=== PATIENT | male | born 1965 | race Caucasian/White ===

== ENCOUNTER 2016-12-28 20:40 | Inpatient (IN) | payer BC ==
[~2016-12-28] VITALS: Ht 180.3 cm; Wt 54.4 kg
[2016-12-28] MEDS ORDERED: NKM (20:44)
[2016-12-28 20:50] VITALS: BP 161/108
--- NOTE | 2016-12-28 21:13 | Emergency Room Report ---
History of Present Illness General Chief Complaint: Nausea Source: Patient Present Illness HPI 51YOM BIBEMS from hot with hypoglycemia [place] weak, nauseated "its happened to me before." Was given dextrose by EMS States history of throat cancer, "gtube fell out years ago", "only drink protein shakes" because hard for me to swallow States cancer free after radiation/chemo years ago Denies history of DM Doesnt take any other meds Also admits to drinking lots of vodka recently Allergies: Coded Allergies: No Known Allergies (Unverified , 12/28/16) Patient History Past Medical History: none, other - laryngeal cancer Pertinent Family History: none Social History: Reports: alcohol use Immunizations: UTD Reviewed Nursing Documentation: PMH: Agreed, PSxH: Agreed Nursing Documentation-PMH Hx Cancer: Yes - throat cancer Review of Systems All Other Systems: negative except mentioned in HPI Physical Exam Vital Signs Date Time Temp Pulse Resp B/P (MAP) Pulse Ox O2 Delivery O2 Flow Rate FiO2 12/28/16 20:41 97.7 99 18 161/108 100 Room Air Sp02 EP Interpretation: reviewed, normal General Appearance: normal inspection, well appearing, no apparent distress, alert, GCS 15, non-toxic, cachetic, thin Head: normocephalic, atraumatic Eyes: bilateral eye PERRL, bilateral eye EOMI ENT: normal ENT inspection, hearing grossly normal, normal voice Neck: normal inspection, full range of motion, supple, no bony tend Respiratory: normal inspection, lungs clear, normal breath sounds, no respiratory distress, no retraction, no wheezing Cardiovascular #1: regular rate, rhythm, no edema Gastrointestinal: normal inspection, normal bowel sounds, non tender, soft, no guarding, no hernia Genitourinary: no CVA tenderness Musculoskeletal: normal inspection, back normal, normal range of motion, Srinivasa' s Sign negative Neurologic: normal inspection, alert, responsive, speech normal Psychiatric: normal inspection, judgement/insight normal, mood/affect normal Skin: normal inspection, normal color, no rash Medical Decision Making Diagnostic Impression: Primary Impression: Weakness Additional Impressions: Malnourished Qualified Codes: E46 - Unspecified protein-calorie malnutrition Hypoglycemia ER Course Patient with weakness, malnourished and hypoglycemia Not on DM meds Cachextic, weak on exam Labs: No acute abnormalities Started on D5NS in ED Med/surg admit Panel Admit to Dr Pham at 1008pm Rhythm Strip Diag. Results EP Interpretation: yes Rate: 94 Rhythm: NSR, no PVC's, no ectopy Last Vital Signs Date Time Temp Pulse Resp B/P (MAP) Pulse Ox O2 Delivery O2 Flow Rate FiO2 12/28/16 20:41 97.7 99 18 161/108 100 Room Air Status: improved Disposition: ADMITTED INPATIENT Condition: Serious ANETTE TAMEZ M.D. Dec 28, 2016 21:13
[2016-12-28 21:27] LABS: MEAN CORPUSCULAR HEMOGLOBIN 32.6 PG (27.0-31.0); MEAN CORPUSCULAR HGB CONC 31.4 G/DL (32.0-36.0); MEAN CORPUSCULAR VOLUME 104 FL (80-99); MEAN PLATELET VOLUME 5.1 FL (6.5-10.1); PLATELET COUNT 219 K/UL (150-450); RED BLOOD COUNT 4.16 M/UL (4.70-6.10); RED CELL DISTRIBUTION WIDTH 13.1 % (11.6-14.8); WHITE BLOOD COUNT 6.1 K/UL (4.8-10.8)
[2016-12-28 21:28] LABS: BASOPHILS % (AUTO) 0.3 % (0.0-2.0); EOSINOPHILS % (AUTO) 0.1 % (0.0-3.0); LYMPHOCYTES % (AUTO) 3.1 % (20.0-45.0); MONOCYTES % (AUTO) 1.7 % (1.0-10.0); NEUTROPHILS % (AUTO) 94.8 % (45.0-75.0)
[2016-12-28 22:02] LABS: ALANINE AMINOTRANSFERASE 29 U/L (12-78); ALBUMIN/GLOBULIN RATIO 1.1 (1.0-2.7); ANION GAP 25 mmol/L (5-15); ASPARTATE AMINO TRANSFERASE 55 U/L (15-37); CALCIUM 8.7 MG/DL (8.5-10.1); CARBON DIOXIDE 17 MMOL/L (21-32); CHLORIDE 93 MMOL/L (98-107); CKMB 6.6 NG/ML (0.0-3.6); CREATININE 1.2 MG/DL (0.55-1.30); GLOMERULAR FILTRATION RATE > 60 mL/min (>60); POTASSIUM 4.2 MMOL/L (3.5-5.1); SODIUM 135 MMOL/L (136-145); TOTAL PROTEIN 7.5 G/DL (6.4-8.2)
[2016-12-28] MEDS ORDERED: D5NS 1,000 ML IV SCH (22:15)
[2016-12-28 22:25] VITALS: BP 132/81
[2016-12-28] MEDS ORDERED: Mylanta II UD 30ml ORAL PRN (23:15)
[2016-12-28] MEDS ORDERED: Miralax 17gm pkt ORAL PRN (23:15)
[2016-12-28] MEDS ORDERED: LORazepam Inj 2mg/ml 1ml IV PRN (23:15)
[2016-12-29] VITALS: BP 121/77
[2016-12-29 04:00] VITALS: BP 116/72
[2016-12-29 08:52] LABS: BASOPHILS % (AUTO) 0.6 % (0.0-2.0); EOSINOPHILS % (AUTO) 0.7 % (0.0-3.0); LYMPHOCYTES % (AUTO) 8.9 % (20.0-45.0); MEAN CORPUSCULAR HGB CONC 35.5 G/DL (32.0-36.0); MEAN CORPUSCULAR VOLUME 99 FL (80-99); MEAN PLATELET VOLUME 5.6 FL (6.5-10.1); MONOCYTES % (AUTO) 9.2 % (1.0-10.0); NEUTROPHILS % (AUTO) 80.6 % (45.0-75.0); PLATELET COUNT 196 K/UL (150-450); RED BLOOD COUNT 3.37 M/UL (4.70-6.10); RED CELL DISTRIBUTION WIDTH 12.4 % (11.6-14.8); WHITE BLOOD COUNT 6.9 K/UL (4.8-10.8)
[2016-12-29 09:01] LABS: ALANINE AMINOTRANSFERASE 23 U/L (12-78); ALBUMIN/GLOBULIN RATIO 1.1 (1.0-2.7); ANION GAP 12 mmol/L (5-15); ASPARTATE AMINO TRANSFERASE 36 U/L (15-37); CALCIUM 7.7 MG/DL (8.5-10.1); CARBON DIOXIDE 24 MMOL/L (21-32); CHLORIDE 99 MMOL/L (98-107); CHOLESTEROL 165 MG/DL (< 200); CHOLESTEROL/HDL RATIO 2.4 (3.3-4.4); CREATININE 0.9 MG/DL (0.55-1.30); GLOMERULAR FILTRATION RATE > 60 mL/min (>60); POTASSIUM 4.1 MMOL/L (3.5-5.1); SODIUM 134 MMOL/L (136-145); THYROID STIMULATING HORMONE 7.834 uiU/mL (0.360-3.740); TOTAL PROTEIN 5.9 G/DL (6.4-8.2)
[2016-12-29 09:03] LABS: BILIRUBIN,DIRECT 0.2 MG/DL (0.0-0.3)
[2016-12-29] MEDS: Heparin 5000 units/ml inj SUBQ SCH ×2 (09:11→20:22)
--- NOTE | 2016-12-29 10:22 | Diagnostic Imaging Report ---
Indication: PAIN Technique: One view of the chest Comparison: none Findings: Lungs and pleural spaces are clear. Heart size is normal. Impression: No acute process
--- NOTE | 2016-12-29 11:34 | History and Physical ---
History of Present Illness General Date patient seen: Dec 28, 2016 Reason for Hospitalization: Nausea Present Illness HPI 51 year old male with hx of throat cancer, s/p radiation and chemo and upper esophagus strictures presented l with hypoglycemia, weakness, nauseated. He "only drink protein shakes" because hard for me to swallow. He is admitted for dehydration and hypoglycemia. Allergies: Coded Allergies: No Known Allergies (Unverified , 12/28/16) Medication History Scheduled No Known Medications* (NKM - No Known Medications*), 0 ., (Reported) Patient History Healthcare decision maker Resuscitation status Advanced Directive on File Past Medical/Surgical History Past Medical/Surgical History: (1) Throat cancer Review of Systems All Other Systems: negative except mentioned in HPI Physical Exam General Appearance: cachetic Lines, tubes and drains: peripheral HEENT: normocephalic, atraumatic Neck: non-tender, normal alignment Respiratory/Chest: chest wall non-tender, lungs clear Cardiovascular/Chest: normal peripheral pulses, normal rate Abdomen: normal bowel sounds, non tender Genitourinary/Rectal: normal genital exam Last 24 Hour Vital Signs Date Time Temp Pulse Resp B/P (MAP) Pulse Ox O2 Delivery O2 Flow Rate FiO2 12/29/16 04:00 97.5 87 20 116/72 97 Room Air 12/29/16 00:00 97.7 103 19 121/77 100 Room Air 12/28/16 22:35 97.7 84 18 132/81 99 Room Air 12/28/16 22:25 84 18 132/81 99 Room Air 12/28/16 20:50 97.7 89 18 161/108 100 Room Air 12/28/16 20:41 97.7 99 18 161/108 100 Room Air Laboratory Tests Test 12/28/16 21:05 12/28/16 22:05 12/29/16 06:37 White Blood Count 6.1 K/UL (4.8-10.8) 6.9 K/UL (4.8-10.8) Red Blood Count 4.16 M/UL (4.70-6.10) L 3.37 M/UL (4.70-6.10) L Hemoglobin 13.6 G/DL (14.2-18.0) L 11.8 G/DL (14.2-18.0) L Hematocrit 43.1 % (42.0-52.0) 33.3 % (42.0-52.0) L Mean Corpuscular Volume 104 FL (80-99) H 99 FL (80-99) Mean Corpuscular Hemoglobin 32.6 PG (27.0-31.0) H 35.0 PG (27.0-31.0) H Mean Corpuscular Hemoglobin Concent 31.4 G/DL (32.0-36.0) L 35.5 G/DL (32.0-36.0) Red Cell Distribution Width 13.1 % (11.6-14.8) 12.4 % (11.6-14.8) Platelet Count 219 K/UL (150-450) 196 K/UL (150-450) Mean Platelet Volume 5.1 FL (6.5-10.1) L 5.6 FL (6.5-10.1) L Neutrophils (%) (Auto) 94.8 % (45.0-75.0) H 80.6 % (45.0-75.0) H Lymphocytes (%) (Auto) 3.1 % (20.0-45.0) L 8.9 % (20.0-45.0) L Monocytes (%) (Auto) 1.7 % (1.0-10.0) 9.2 % (1.0-10.0) Eosinophils (%) (Auto) 0.1 % (0.0-3.0) 0.7 % (0.0-3.0) Basophils (%) (Auto) 0.3 % (0.0-2.0) 0.6 % (0.0-2.0) Sodium Level 135 MMOL/L (136-145) L 134 MMOL/L (136-145) L Potassium Level 4.2 MMOL/L (3.5-5.1) 4.1 MMOL/L (3.5-5.1) Chloride Level 93 MMOL/L (98-107) L 99 MMOL/L (98-107) Carbon Dioxide Level 17 MMOL/L (21-32) L 24 MMOL/L (21-32) Anion Gap 25 mmol/L (5-15) H 12 mmol/L (5-15) Blood Urea Nitrogen 20 mg/dL (7-18) H 15 mg/dL (7-18) Creatinine 1.2 MG/DL (0.55-1.30) 0.9 MG/DL (0.55-1.30) Estimat Glomerular Filtration Rate > 60 mL/min (>60) > 60 mL/min (>60) Glucose Level 107 MG/DL (74-106) H 78 MG/DL (74-106) Calcium Level 8.7 MG/DL (8.5-10.1) 7.7 MG/DL (8.5-10.1) L Total Bilirubin 0.7 MG/DL (0.2-1.0) 1.1 MG/DL (0.2-1.0) H Aspartate Amino Transf (AST/SGOT) 55 U/L (15-37) H 36 U/L (15-37) Alanine Aminotransferase (ALT/SGPT) 29 U/L (12-78) 23 U/L (12-78) Alkaline Phosphatase 56 U/L (46-116) 42 U/L (46-116) L Total Creatine Kinase 253 U/L (26-308) Creatine Kinase MB 6.6 NG/ML (0.0-3.6) H Creatine Kinase MB Relative Index 2.6 Troponin I 0.002 ng/mL (0.000-0.056) Total Protein 7.5 G/DL (6.4-8.2) 5.9 G/DL (6.4-8.2) L Albumin 4.0 G/DL (3.4-5.0) 3.1 G/DL (3.4-5.0) L Globulin 3.5 g/dL 2.8 g/dL Albumin/Globulin Ratio 1.1 (1.0-2.7) 1.1 (1.0-2.7) Urine Opiates Screen Negative (NEGATIVE) Urine Barbiturates Screen Negative (NEGATIVE) Phencyclidine (PCP) Screen Negative (NEGATIVE) Urine Amphetamines Screen Negative (NEGATIVE) Urine Benzodiazepines Screen Negative (NEGATIVE) Urine Cocaine Screen Negative (NEGATIVE) Urine Marijuana (THC) Screen Positive (NEGATIVE) H Hemoglobin A1c Pending Direct Bilirubin 0.2 MG/DL (0.0-0.3) Triglycerides Level 60 MG/DL (0-200) Cholesterol Level 165 MG/DL (< 200) LDL Cholesterol 89 mg/dL (<100) HDL Cholesterol 69 MG/DL (40-60) H Cholesterol/HDL Ratio 2.4 (3.3-4.4) L Thyroid Stimulating Hormone (TSH) 7.834 uiU/mL (0.360-3.740) Height (Feet): 5 Height (Inches): 11.00 Weight (Pounds): 120 Medications Current Medications Medications (Trade) Dose Ordered Sig/Leo Route PRN Reason Start Time Stop Time Status Last Admin Dose Admin Acetaminophen (Tylenol) 650 mg Q4H PRN ORAL fever 12/28/16 23:15 01/27/17 23:14 Al Hydroxide/Mg Hydroxide (Mylanta II) 30 ml Q6H PRN ORAL dyspepsia 12/28/16 23:15 01/27/17 23:14 Dextrose (Dextrose 50%) STAT PRN IV Hypoglycemia 12/28/16 23:15 01/27/17 23:14 Dextrose/Sodium Chloride 1,000 ml @ 75 mls/hr [id number] IV 12/28/16 23:30 01/27/17 23:29 12/29/16 00:00 Heparin Sodium (Porcine) (Heparin 5000 units/ml) 5,000 units EVERY 12 HOURS SUBQ 12/29/16 09:00 01/28/17 08:59 12/29/16 09:11 Lorazepam (Ativan 2mg/ml 1ml) 0.5 mg Q4H PRN IV For Anxiety 12/28/16 23:15 01/04/17 23:14 Ondansetron HCl (Zofran) 4 mg Q6H PRN IVP Nausea & Vomiting 12/28/16 23:15 01/27/17 23:14 12/29/16 09:10 Polyethylene Glycol (Miralax) 17 gm HSPRN PRN ORAL Constipation 12/28/16 23:15 01/27/17 23:14 Zolpidem Tartrate (Ambien) 5 mg HSPRN PRN ORAL Insomnia 12/28/16 23:15 01/04/17 23:14 Assessment/Plan Problem List: (1) ATN (acute tubular necrosis) ICD Codes: N17.0 - Acute kidney failure with tubular necrosis SNOMED: 26963093 (2) Weakness ICD Codes: R53.1 - Weakness SNOMED: 81252827 (3) Throat cancer ICD Codes: C14.0 - Malignant neoplasm of pharynx, unspecified SNOMED: 147964715 (4) Malnourished ICD Codes: E46 - Unspecified protein-calorie malnutrition SNOMED: 3341291 Qualifiers: Qualified Codes: E46 - Unspecified protein-calorie malnutrition (5) Hypoglycemia ICD Codes: E16.2 - Hypoglycemia, unspecified SNOMED: 820766859 Assessment/Plan Iv hydration GI evaluation check electrolytes VELIA HANKINS Dec 29, 2016 11:34
--- NOTE | 2016-12-29 11:35 | Pulmonology Progress Note ---
Assessment/Plan Problems: (1) ATN (acute tubular necrosis) (2) Weakness (3) Throat cancer (4) Malnourished (5) Hypoglycemia Assessment/Plan continue iv fluids awaiting GI evaluation barium swallow study check electrolytes. Subjective ROS Limited/Unobtainable: No Interval Events: feeling slighly better, eating Allergies: Coded Allergies: No Known Allergies (Unverified , 12/28/16) Objective Last 24 Hour Vital Signs Date Time Temp Pulse Resp B/P (MAP) Pulse Ox O2 Delivery O2 Flow Rate FiO2 12/29/16 04:00 97.5 87 20 116/72 97 Room Air 12/29/16 00:00 97.7 103 19 121/77 100 Room Air 12/28/16 22:35 97.7 84 18 132/81 99 Room Air 12/28/16 22:25 84 18 132/81 99 Room Air 12/28/16 20:50 97.7 89 18 161/108 100 Room Air 12/28/16 20:41 97.7 99 18 161/108 100 Room Air General Appearance: WD/WN HEENT: normocephalic, atraumatic Respiratory/Chest: chest wall non-tender, lungs clear Cardiovascular: normal peripheral pulses, normal rate Abdomen: normal bowel sounds, soft, non tender Extremities: no cyanosis Neurologic/Psychiatric: heel gummer II-XII grossly normal Lymphatic: no neck adenopathy Laboratory Tests 12/28/16 21:05: White Blood Count 6.1, Red Blood Count 4.16L, Hemoglobin 13.6L, Hematocrit 43.1 , Mean Corpuscular Volume 104H, Mean Corpuscular Hemoglobin 32.6H, Mean Corpuscular Hemoglobin Concent 31.4L, Red Cell Distribution Width 13.1, Platelet Count 219, Mean Platelet Volume 5.1L, Neutrophils (%) (Auto) 94.8H, Lymphocytes (%) (Auto) 3.1L, Monocytes (%) (Auto) 1.7, Eosinophils (%) (Auto) 0.1, Basophils (%) (Auto) 0.3, Sodium Level 135L, Potassium Level 4.2, Chloride Level 93L, Carbon Dioxide Level 17L, Anion Gap 25H, Blood Urea Nitrogen 20H, Creatinine 1.2, Estimat Glomerular Filtration Rate > 60, Glucose Level 107H, Calcium Level 8.7, Total Bilirubin 0.7, Aspartate Amino Transf (AST/SGOT) 55H, Alanine Aminotransferase (ALT/SGPT) 29, Alkaline Phosphatase 56, Total Creatine Kinase 253, Creatine Kinase MB 6.6H, Creatine Kinase MB Relative Index 2.6, Troponin I 0.002, Total Protein 7.5, Albumin 4.0, Globulin 3.5, Albumin/ Globulin Ratio 1.1 12/28/16 22:05: Urine Opiates Screen Negative, Urine Barbiturates Screen Negative, Phencyclidine (PCP) Screen Negative, Urine Amphetamines Screen Negative, Urine Benzodiazepines Screen Negative, Urine Cocaine Screen Negative, Urine Marijuana (THC) Screen PositiveH 12/29/16 06:37: White Blood Count 6.9, Red Blood Count 3.37L, Hemoglobin 11.8L, Hematocrit 33.3L , Mean Corpuscular Volume 99, Mean Corpuscular Hemoglobin 35.0H, Mean Corpuscular Hemoglobin Concent 35.5, Red Cell Distribution Width 12.4, Platelet Count 196, Mean Platelet Volume 5.6L, Neutrophils (%) (Auto) 80.6H, Lymphocytes (%) (Auto) 8.9L, Monocytes (%) (Auto) 9.2, Eosinophils (%) (Auto) 0.7, Basophils (%) (Auto) 0.6, Sodium Level 134L, Potassium Level 4.1, Chloride Level 99, Carbon Dioxide Level 24, Anion Gap 12, Blood Urea Nitrogen 15, Creatinine 0.9, Estimat Glomerular Filtration Rate > 60, Glucose Level 78, Calcium Level 7.7L, Total Bilirubin 1.1H, Aspartate Amino Transf (AST/SGOT) 36, Alanine Aminotransferase (ALT/SGPT) 23, Alkaline Phosphatase 42L, Total Protein 5.9L, Albumin 3.1L, Globulin 2.8, Albumin/Globulin Ratio 1.1, Hemoglobin A1c [ Pending], Direct Bilirubin 0.2, Triglycerides Level 60, Cholesterol Level 165, LDL Cholesterol 89, HDL Cholesterol 69H, Cholesterol/HDL Ratio 2.4L, Thyroid Stimulating Hormone (TSH) 7.834H Current Medications Medications (Trade) Dose Ordered Sig/Leo Route PRN Reason Start Time Stop Time Status Last Admin Dose Admin Acetaminophen (Tylenol) 650 mg Q4H PRN ORAL fever 12/28/16 23:15 01/27/17 23:14 Al Hydroxide/Mg Hydroxide (Mylanta II) 30 ml Q6H PRN ORAL dyspepsia 12/28/16 23:15 01/27/17 23:14 Dextrose (Dextrose 50%) STAT PRN IV Hypoglycemia 12/28/16 23:15 01/27/17 23:14 Dextrose/Sodium Chloride 1,000 ml @ 75 mls/hr [id number] IV 12/28/16 23:30 01/27/17 23:29 12/29/16 00:00 Heparin Sodium (Porcine) (Heparin 5000 units/ml) 5,000 units EVERY 12 HOURS SUBQ 12/29/16 09:00 01/28/17 08:59 12/29/16 09:11 Lorazepam (Ativan 2mg/ml 1ml) 0.5 mg Q4H PRN IV For Anxiety 12/28/16 23:15 01/04/17 23:14 Ondansetron HCl (Zofran) 4 mg Q6H PRN IVP Nausea & Vomiting 12/28/16 23:15 01/27/17 23:14 12/29/16 09:10 Polyethylene Glycol (Miralax) 17 gm HSPRN PRN ORAL Constipation 12/28/16 23:15 01/27/17 23:14 Zolpidem Tartrate (Ambien) 5 mg HSPRN PRN ORAL Insomnia 12/28/16 23:15 01/04/17 23:14 VELIA HANKINS Dec 29, 2016 11:35
[2016-12-29 12:00] VITALS: BP 106/71
[2016-12-29] MEDS: D5NS 1,000 ML IV SCH ×2 (12:21)
[2016-12-29 13:35] LABS: HEMOGLOBIN A1C 5.9 % (4.3-6.0)
[2016-12-29 16:00] VITALS: BP 113/63
[2016-12-29 20:00] VITALS: BP 130/81
[2016-12-29] MEDS: Zolpidem 5mg tab ORAL PRN (20:17)
[2016-12-30] MEDS: D5NS 1,000 ML IV SCH ×2 (02:30→16:38)
[2016-12-30 04:00] VITALS: BP 125/75
[2016-12-30 08:05] VITALS: BP 129/92
[2016-12-30] MEDS: Heparin 5000 units/ml inj SUBQ SCH ×2 (08:42→20:57)
[2016-12-30] MEDS ORDERED: D5NS 1000ml IV ONE (10:11)
[2016-12-30] MEDS: Thiamine HCl 100 MG in D5W 55 ML IVPB SCH (10:22)
--- NOTE | 2016-12-30 10:45 | Pulmonology Progress Note ---
Assessment/Plan Problems: (1) ATN (acute tubular necrosis) (2) Hypoglycemia (3) Protein-calorie malnutrition, severe (4) Weakness (5) Throat cancer (6) Malnourished Assessment/Plan continue iv fluids awaiting GI evaluation barium swallow study check electrolytes. check CEA and HIV anemia w/u Subjective ROS Limited/Unobtainable: No Constitutional: Reports: no symptoms HEENT: Repors: no symptoms Respiratory: Reports: no symptoms Allergies: Coded Allergies: No Known Allergies (Unverified , 12/28/16) Objective Last 24 Hour Vital Signs Date Time Temp Pulse Resp B/P (MAP) Pulse Ox O2 Delivery O2 Flow Rate FiO2 12/30/16 08:05 97.9 82 21 129/92 97 Room Air 12/30/16 04:00 97.7 75 20 125/75 100 Room Air 12/29/16 20:00 98.2 75 21 130/81 100 Room Air 12/29/16 16:00 99.0 76 18 113/63 100 Room Air 12/29/16 12:00 97.5 93 18 106/71 99 Room Air General Appearance: cachetic HEENT: normocephalic, anicteric Respiratory/Chest: chest wall non-tender, normal breath sounds Cardiovascular: normal peripheral pulses, normal rate Abdomen: normal bowel sounds, soft, non tender Genitourinary: normal external genitalia Extremities: no cyanosis Skin: no lesions Current Medications Medications (Trade) Dose Ordered Sig/Leo Route PRN Reason Start Time Stop Time Status Last Admin Dose Admin Acetaminophen (Tylenol) 650 mg Q4H PRN ORAL fever 12/28/16 23:15 01/27/17 23:14 12/30/16 06:27 Al Hydroxide/Mg Hydroxide (Mylanta II) 30 ml Q6H PRN ORAL dyspepsia 12/28/16 23:15 01/27/17 23:14 Dextrose (Dextrose 50%) STAT PRN IV Hypoglycemia 12/28/16 23:15 01/27/17 23:14 Dextrose/Sodium Chloride 1,000 ml @ 75 mls/hr [id number] IV 12/28/16 23:30 01/27/17 23:29 12/30/16 02:30 Heparin Sodium (Porcine) (Heparin 5000 units/ml) 5,000 units EVERY 12 HOURS SUBQ 12/29/16 09:00 01/28/17 08:59 12/30/16 08:42 Lorazepam (Ativan 2mg/ml 1ml) 0.5 mg Q4H PRN IV For Anxiety 12/28/16 23:15 01/04/17 23:14 Ondansetron HCl (Zofran) 4 mg Q6H PRN IVP Nausea & Vomiting 12/28/16 23:15 01/27/17 23:14 12/29/16 20:17 Polyethylene Glycol (Miralax) 17 gm HSPRN PRN ORAL Constipation 12/28/16 23:15 01/27/17 23:14 Thiamine HCl 100 mg/Dextrose 56 ml @ 112 mls/hr Q24H IVPB 12/30/16 09:00 01/29/17 08:59 12/30/16 10:22 Zolpidem Tartrate (Ambien) 5 mg HSPRN PRN ORAL Insomnia 12/28/16 23:15 01/04/17 23:14 12/29/16 20:17 VELIA HANKINS Dec 30, 2016 10:45
[2016-12-30 12:15] VITALS: BP 110/68
[2016-12-30 16:00] VITALS: BP 117/75
[2016-12-30 17:28] LABS: PROTHROMBIN TIME 10.7 SEC (9.30-11.50)
[2016-12-30 18:13] LABS: FOLIC ACID 11.1 NG/ML (3.1-17.5)
[2016-12-30 18:16] LABS: PATH BLOOD SMEAR/OMC SENT TO PATHOLOGIST; RETICULOCYTE COUNT 0.4 % (0.0-2.0)
--- NOTE | 2016-12-30 18:36 | Cardiology Report ---
APPROVED REPORT EKG Measurement Heart [id number] sinus rhythm T wave abnormality, consider anterior ischemia Abnormal ECG
[2016-12-30 18:38] LABS: ERYTHROCYTE SEDIMENTATION RATE 5 MM/HR (0-20)
[2016-12-30 20:00] VITALS: BP 130/71
[2016-12-30] MEDS: Zolpidem 5mg tab ORAL PRN (20:56)
[2016-12-31 04:00] VITALS: BP 111/75
[2016-12-31] MEDS: D5NS 1,000 ML IV SCH (06:23)
[2016-12-31 08:00] VITALS: BP 122/71
[2016-12-31] MEDS: Heparin 5000 units/ml inj SUBQ SCH (08:29)
--- NOTE | 2016-12-31 08:46 | Consultation ---
DATE OF CONSULTATION: 12/30/2016 CHIEF COMPLAINT: Dysphagia and anemia. HISTORY OF PRESENT ILLNESS: The patient is a 51-year-old male with a history of laryngeal cancer, status post chemoradiation according to him 3 years ago. He has been having chronic difficulty with eating. Every time he eats he has to use a coke or water to push it down, apparently only on the protein shake diet because of that. Last endoscopy according to him was about a year ago. He is also alcoholic. He admits to drinking lots of vodka recently. He came to the hospital with hypoglycemia, feeling weak. Denies any nausea or vomiting. Denies any hematemesis. The patient is . PAST MEDICAL HISTORY: 1. History of laryngeal cancer, status post chemoradiation. 2. Chronic dysphagia. ALLERGIES: No known drug allergies. MEDICATIONS: Please see medication reconciliation list. SOCIAL HISTORY: The patient admits to drinking vodka or alcohol. The patient is an ex-smoker. FAMILY HISTORY: Noncontributory. REVIEW OF SYSTEMS: A 10-point review of systems was performed and pertinent positives as dictated in the history of present illness. PHYSICAL EXAMINATION: GENERAL: Mildly cachectic looking male, in no acute distress. VITAL SIGNS: Temperature 97.7, pulse 74, respirations 20, and blood pressure 120/75. HEENT: Normocephalic and atraumatic. Sclerae anicteric. NECK: Supple. No evidence of obvious lymphadenopathy. CARDIOVASCULAR: Regular rhythm. Plus S1 and S2. LUNGS: Decreased breath sounds bilaterally. ABDOMEN: Soft and nontender. No organomegaly. EXTREMITIES: No cyanosis. No clubbing. No edema. LABORATORY DATA: White count 6.9, hemoglobin 11.8, hematocrit 33, and platelet count is 196,000. Chem-7, sodium 134, potassium 4.1, BUN 15, and creatinine 0.9. Liver function grossly normal. ASSESSMENT AND PLAN: A 51-year-old male with history of laryngeal cancer with dysphagia and alcohol usage. Plan to follow an esophagogram, which shows endoscopy and dilatation. Meanwhile, the patient is on calorie count. We will also evaluate how much he is eating, apparently his prior G-tube fell out and now he is only eating protein shakes. We are also going to order anemia workup, stool for O and P, CEA level. The patient is taking alcohol. We will start the patient on thiamine, folate, and multivitamin. I want to thank Dr. Pham for this kind referral. Tony Key M.D. DR: SAMUEL JOB#: [id number] CC: Gloria Pham M.D.; Fax#: [phone]
[2016-12-31 09:00] LABS: BASOPHILS % (AUTO) 0.6 % (0.0-2.0); EOSINOPHILS % (AUTO) 2.9 % (0.0-3.0); LYMPHOCYTES % (AUTO) 14.8 % (20.0-45.0); MEAN CORPUSCULAR HEMOGLOBIN 34.1 PG (27.0-31.0); MEAN CORPUSCULAR HGB CONC 33.7 G/DL (32.0-36.0); MEAN CORPUSCULAR VOLUME 101 FL (80-99); MEAN PLATELET VOLUME 5.9 FL (6.5-10.1); MONOCYTES % (AUTO) 8.3 % (1.0-10.0); NEUTROPHILS % (AUTO) 73.4 % (45.0-75.0); PLATELET COUNT 168 K/UL (150-450); RED BLOOD COUNT 3.75 M/UL (4.70-6.10); RED CELL DISTRIBUTION WIDTH 12.5 % (11.6-14.8); WHITE BLOOD COUNT 4.1 K/UL (4.8-10.8)
[2016-12-31 09:22] LABS: IRON 79 ug/dL (50-175); TOTAL IRON BINDING CAPACITY 275 ug/dL (250-450)
--- NOTE | 2016-12-31 10:12 | GI Progress Note ---
Assessment/Plan Problems: (1) Throat cancer ICD Codes: C14.0 - Malignant neoplasm of pharynx, unspecified SNOMED: 363111449 (2) Hypoglycemia ICD Codes: E16.2 - Hypoglycemia, unspecified SNOMED: 234348405 (3) Malnourished ICD Codes: E46 - Unspecified protein-calorie malnutrition SNOMED: 6248229 Qualifiers: Qualified Codes: E46 - Unspecified protein-calorie malnutrition (4) Protein-calorie malnutrition, severe ICD Codes: E43 - Unspecified severe protein-calorie malnutrition SNOMED: 205807213 Status: stable, unchanged Status Narrative Discussed with Dr. Key. Assessment/Plan EGD refused by patient, states he has had it done before and wishes to follow up with primary onc. >> okay for DC per GI standpoint fu esophagogram, okay to resume diet after fu calorie s/p GT, fell out fu stool O&P cont banana bag fu labs, O&P, CEA Subjective Subjective hungry feels okay denies abdominal pain Objective Last 24 Hour Vital Signs Date Time Temp Pulse Resp B/P (MAP) Pulse Ox O2 Delivery O2 Flow Rate FiO2 12/31/16 04:00 97.8 64 18 111/75 100 Room Air 12/30/16 20:00 98.1 74 21 130/71 100 Room Air 12/30/16 16:00 97.9 73 20 117/75 100 Room Air 12/30/16 12:15 97.5 68 21 110/68 97 Room Air Laboratory Tests Test 12/30/16 15:40 12/31/16 05:14 12/31/16 06:50 Erythrocyte Sedimentation Rate 5 MM/HR (0-20) Reticulocyte Count 0.4 % (0.0-2.0) Prothrombin Time 10.7 SEC (9.30-11.50) Prothromb Time International Ratio 1.0 (0.9-1.1) Activated Partial Thromboplast Time 27 SEC (23-33) Lactate Dehydrogenase 161 U/L (81-234) Vitamin B12 Level 784 PG/ML (193-986) Folate 11.1 NG/ML (3.1-17.5) HIV (1&2) Antibody Rapid Negative (NEGATIVE) Urine Opiates Screen Negative (NEGATIVE) Urine Barbiturates Screen Negative (NEGATIVE) Phencyclidine (PCP) Screen Negative (NEGATIVE) Urine Amphetamines Screen Negative (NEGATIVE) Urine Benzodiazepines Screen Negative (NEGATIVE) Urine Cocaine Screen Negative (NEGATIVE) Urine Marijuana (THC) Screen Positive (NEGATIVE) H White Blood Count 4.1 K/UL (4.8-10.8) L Red Blood Count 3.75 M/UL (4.70-6.10) L Hemoglobin 12.8 G/DL (14.2-18.0) L Hematocrit 38.0 % (42.0-52.0) L Mean Corpuscular Volume 101 FL (80-99) H Mean Corpuscular Hemoglobin 34.1 PG (27.0-31.0) H Mean Corpuscular Hemoglobin Concent 33.7 G/DL (32.0-36.0) Red Cell Distribution Width 12.5 % (11.6-14.8) Platelet Count 168 K/UL (150-450) Mean Platelet Volume 5.9 FL (6.5-10.1) L Neutrophils (%) (Auto) 73.4 % (45.0-75.0) Lymphocytes (%) (Auto) 14.8 % (20.0-45.0) L Monocytes (%) (Auto) 8.3 % (1.0-10.0) Eosinophils (%) (Auto) 2.9 % (0.0-3.0) Basophils (%) (Auto) 0.6 % (0.0-2.0) Iron Level 79 ug/dL (50-175) Total Iron Binding Capacity 275 ug/dL (250-450) Percent Iron Saturation 29 % (15-50) Unsaturated Iron Binding 196 ug/dL (112-346) Height (Feet): 5 Height (Inches): 11.00 Weight (Pounds): 120 General Appearance: WD/WN, no apparent distress, alert Cardiovascular: normal rate Respiratory/Chest: normal breath sounds, no respiratory distress Abdominal Exam: normal bowel sounds, non tender, soft Extremities: normal range of motion, non-tender Miley Levy N.PXavi Dec 31, 2016 10:12
[2016-12-31] MEDS: Thiamine HCl 100 MG in D5W 55 ML IVPB SCH (10:46)
--- NOTE | 2016-12-31 12:34 | Diagnostic Imaging Report ---
Indication: DYSPHAGIA history laryngeal cancer, chemoradiation, chronic dysphagia, difficulty ingesting solid material Technique: Patient ingested effervescent granules, thick and thin liquid barium, and rapid sequence spot images and static images were obtained Total fluoroscopy time 1.4 minutes. Total dose area product 247 dGycm2 Comparison: None Findings: Technology Risk Intern image is unremarkable There is generalized mild distal esophageal dysmotility. No stricture, ulceration, or filling defect demonstrated. Penetration and aspiration of the ingested material or observed. 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 On the prone images, there is a small sliding-type hiatal hernia. Limited view of the stomach is unremarkable. Impression: Evidence of significant oromotor dysfunction, as described. Formal speech pathology evaluation is recommended Evidence of laryngeal penetration and aspiration presumably related to the above Mild distal esophageal dysmotility. This may be on the basis of age-related changes, reflux esophagitis, or combination of both No evidence of distal esophageal anatomic obstruction Small sliding-type hiatal hernia seen when patient in the prone position.
[2016-12-31] MEDS ORDERED: D5NS 1000ml IV ONE (13:46)
[2016-12-31] MEDS ORDERED: Tubing IV Secondary IV ONE (13:46)
--- NOTE | 2016-12-31 14:32 | Pulmonology Progress Note ---
Assessment/Plan Problems: (1) ATN (acute tubular necrosis) (2) Hypoglycemia (3) Protein-calorie malnutrition, severe (4) Weakness (5) Throat cancer (6) Malnourished Assessment/Plan pt refusing endoscopy wants to go home barium swallow study check electrolytes. HIV done, dc home with close f/u with primary Subjective ROS Limited/Unobtainable: No Constitutional: Reports: no symptoms HEENT: Repors: no symptoms Respiratory: Reports: no symptoms Allergies: Coded Allergies: No Known Allergies (Unverified , 12/28/16) Objective Last 24 Hour Vital Signs Date Time Temp Pulse Resp B/P (MAP) Pulse Ox O2 Delivery O2 Flow Rate FiO2 12/31/16 04:00 97.8 64 18 111/75 100 Room Air 12/30/16 20:00 98.1 74 21 130/71 100 Room Air 12/30/16 16:00 97.9 73 20 117/75 100 Room Air General Appearance: cachetic HEENT: normocephalic, atraumatic Respiratory/Chest: chest wall non-tender, lungs clear Cardiovascular: normal rate Abdomen: normal bowel sounds, soft, non tender Skin: no rash, no ulcers Laboratory Tests 12/30/16 15:40: Erythrocyte Sedimentation Rate 5, Reticulocyte Count 0.4, Prothrombin Time 10.7 , Prothromb Time International Ratio 1.0, Activated Partial Thromboplast Time 27 , Lactate Dehydrogenase 161, Vitamin B12 Level 784, Folate 11.1, HIV (1&2) Antibody Rapid Negative 12/31/16 05:14: Urine Opiates Screen Negative, Urine Barbiturates Screen Negative, Phencyclidine (PCP) Screen Negative, Urine Amphetamines Screen Negative, Urine Benzodiazepines Screen Negative, Urine Cocaine Screen Negative, Urine Marijuana (THC) Screen PositiveH 12/31/16 06:50: White Blood Count 4.1L, Red Blood Count 3.75L, Hemoglobin 12.8L, Hematocrit 38.0L, Mean Corpuscular Volume 101H, Mean Corpuscular Hemoglobin 34.1H, Mean Corpuscular Hemoglobin Concent 33.7, Red Cell Distribution Width 12.5, Platelet Count 168, Mean Platelet Volume 5.9L, Neutrophils (%) (Auto) 73.4, Lymphocytes ( %) (Auto) 14.8L, Monocytes (%) (Auto) 8.3, Eosinophils (%) (Auto) 2.9, Basophils (%) (Auto) 0.6, Iron Level 79, Total Iron Binding Capacity 275, Percent Iron Saturation 29, Unsaturated Iron Binding 196 Current Medications Medications (Trade) Dose Ordered Sig/Leo Route PRN Reason Start Time Stop Time Status Last Admin Dose Admin Acetaminophen (Tylenol) 650 mg Q4H PRN ORAL fever 12/28/16 23:15 01/27/17 23:14 12/30/16 06:27 Al Hydroxide/Mg Hydroxide (Mylanta II) 30 ml Q6H PRN ORAL dyspepsia 12/28/16 23:15 01/27/17 23:14 Dextrose (Dextrose 50%) STAT PRN IV Hypoglycemia 12/28/16 23:15 01/27/17 23:14 Dextrose/Sodium Chloride 1,000 ml @ 75 mls/hr [id number] IV 12/28/16 23:30 01/27/17 23:29 12/31/16 06:23 Heparin Sodium (Porcine) (Heparin 5000 units/ml) 5,000 units EVERY 12 HOURS SUBQ 12/29/16 09:00 01/28/17 08:59 12/31/16 08:29 Lorazepam (Ativan 2mg/ml 1ml) 0.5 mg Q4H PRN IV For Anxiety 12/28/16 23:15 01/04/17 23:14 Ondansetron HCl (Zofran) 4 mg Q6H PRN IVP Nausea & Vomiting 12/28/16 23:15 01/27/17 23:14 12/30/16 10:56 Polyethylene Glycol (Miralax) 17 gm HSPRN PRN ORAL Constipation 12/28/16 23:15 01/27/17 23:14 Thiamine HCl 100 mg/Dextrose 56 ml @ 112 mls/hr Q24H IVPB 12/30/16 09:00 01/29/17 08:59 12/31/16 10:46 Zolpidem Tartrate (Ambien) 5 mg HSPRN PRN ORAL Insomnia 12/28/16 23:15 01/04/17 23:14 12/30/16 20:56 VELIA HANKINS Dec 31, 2016 14:32
--- NOTE | 2017-01-01 13:33 | Discharge Summary ---
Discharge Summary Hospital Course Date of Admission Dec 28, 2016 at 21:59 Date of Discharge Dec 31, 2016 at 15:40 Admitting Diagnosis weakness/hypoglcyemia HPI Que Kovacs is a 51 year old male who was admitted on Dec 28, 2016 at 21: 59 for Weakness/Hypoglycemia Hospital Course dc summary #[id number] Discharge Condition Upon Discharge: stable Discharge Disposition Patient was discharged to Home (01) Discharge Diagnoses: Discharge Instructions Discharge Instructions Special Instructions I have been assigned to complete a D/C Summary on this account. I was not involved in the patient management Leatha Temple NP (Vanchtein) Jan 01, 2017 13:33
--- NOTE | 2017-01-02 00:30 | Discharge Summary 2 SIG ---
DATE OF ADMISSION: 12/28/2016 DATE OF DISCHARGE: 12/31/2016 REASON FOR ADMISSION: 51-year-old male with a history of laryngeal CA presented for hypoglycemia. The patient reported feeling weak, nauseated, stated similar episode happened to him in the past. He was given dextrose by partner marketing intern. In terms of his laryngeal cancer, he reported that he only drinks protein shake. He used to have G-tube but it fell out years ago. He reported difficulty swallowing. The patient reported being cancer free after radiation and chemotherapy years ago. He denied any history of diabetes. Vital signs were stable. Pulse oximetry was stable on room air. Blood pressure was initially elevated - 161/108. The patient appeared to be malnourished. BUN -20 and creatinine- 1.2. Electrolytes were stable. AST- 55 and ALT- 29. Urine toxicology screen was positive for marijuana. No leukocytosis. Patient was admitted using alcohol frequently, and recent use of vodka. The patient was admitted for further management for hypoglycemia, possible acute tubular necrosis, and severe malnutrition. HOSPITAL COURSE: The patient admitted to Medical/Surgical floor. The patient started on IV fluids. GI consult was requested. Dietary consult and swallow evaluation were ordered. GI seen and evaluated the patient. The patient declined EGD and wanted to follow up with the primary oncologist. Gastrointestinal ordered esophagram and resume diet after it. Esophagram revealed mild distal esophageal dysmotility, possibly on the basis of age-related changes, reflux esophagitis, or combination of both. No evidence of distal esophageal anatomic obstruction. Subsequently diet was started as tolerated. The patient also undergone swallow evaluation. Per speech therapy the patient had mild dysphagia and dysphagia risk factor due to the radiation and chemotherapy to head and neck. The patient was currently drinking protein shakes. Dietary evaluation was completed. per adoption worker, the patient had high nutritional risk. Mechanical Test Engineer recommended Ensure one can three times a day with all meals and follow up with calorie count. Calorie count revealed 50-74% of oral intake. Vital signs were stable. Blood sugar stabilized after IV fluids with dextrose Hemoglobin A1c -5.9, which does not qualify the patient for diabetes (only prediabetes). DVT prophylaxis was provided. Noted that the patient has a mild anemia. Workup for anemia revealed stable iron panel, stable B12, and folate level. The patient was counseled on abstinence from alcohol intake. HIV test was negative. Patient was stable for discharge home. FINAL DIAGNOSES: 1. Hypoglycemia. 2. Severe protein-calorie malnutrition. 3. Possible acute tubular necrosis, resolved. 4. Laryngeal cancer, status post chemotherapy and radiation. 5. Mild anemia , likely of chronic disease. 6. Alcohol dependency. 7. Esophageal dysmotility. DISCHARGE MEDICATIONS: No known medications. DISCHARGE INSTRUCTIONS: The patient was discharged home and followup with the primary doctor and his oncologist. Gloria Pham M.D. I have been assigned to dictate discharge summary on this account and I was not involved in the patient's management. Leatha LermaAdirondack Medical CenterBerenice N.PXavi DR: KEYONA JOB#: [id number] CC: CRISTOPHER
== END 2016-12-31 15:40 | disposition home or self-care (01) | DRG 640 ==
LOC: EDBD 20:40 → EMR 21:55 → 4E 21:59 → EDBEDREQ 22:11
DX: E16.2 Hypoglycemia, unspecified (principal); E43 Unspecified severe protein-calorie malnutrition; N17.0 Acute kidney failure with tubular necrosis; Z68.1 Body mass index [BMI] 19.9 or less, adult; R13.10 Dysphagia, unspecified; K22.4 Dyskinesia of esophagus; F10.20 Alcohol dependence, uncomplicated; D63.8 Anemia in other chronic diseases classified elsewhere; Z87.891 Personal history of nicotine dependence; Z85.21 Personal history of malignant neoplasm of larynx; Z92.3 Personal history of irradiation; Z92.21 Personal history of antineoplastic chemotherapy; Z53.29 Procedure and treatment not carried out because of patient's decision for other reasons
CPT/HCPCS: 36415; 71010; 74220; 80053; 80061; 80307; 82248; 82550; 82553; 82607; 82746; 82962; 83036; 83540; 83550; 83615; 84443; 84484; 85025; 85044; 85060; 85610; 85651; 85730; 86703; 93005; 99285; J2405

== ENCOUNTER 2018-11-05 15:15 | Emergency (ER) | payer BC ==
[~2018-11-05] VITALS: Ht 180.3 cm; Wt 50.8 kg
[~2018-11-05 15:15] MED LIST: NKM
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
[2018-11-05] MEDS ORDERED: LORazepam Inj 2mg/ml 1ml IV ONE (15:45)
[2018-11-05 15:56] LABS: BASOPHILS % (AUTO) 0.6 % (0.0-2.0); EOSINOPHILS % (AUTO) 0.4 % (0.0-3.0); HEMATOCRIT 36.3 % (42.0-52.0); HEMOGLOBIN 13.3 G/DL (14.2-18.0); LYMPHOCYTES % (AUTO) 10.8 % (20.0-45.0); MEAN CORPUSCULAR VOLUME 86 FL (80-99); NEUTROPHILS % (AUTO) 82.1 % (45.0-75.0); PLATELET COUNT 304 K/UL (150-450); RED BLOOD COUNT 4.22 M/UL (4.70-6.10); RED CELL DISTRIBUTION WIDTH 12.1 % (11.6-14.8); WHITE BLOOD COUNT 10.1 K/UL (4.8-10.8)
[2018-11-05 16:02] LABS: ANION GAP 20 mmol/L (5-15); BLOOD UREA NITROGEN 8 mg/dL (7-18); CALCIUM 8.9 MG/DL (8.5-10.1); CARBON DIOXIDE 22 MMOL/L (21-32); CHLORIDE 97 MMOL/L (98-107); CREATININE 0.9 MG/DL (0.55-1.30); POTASSIUM 3.4 MMOL/L (3.5-5.1); SODIUM 139 MMOL/L (136-145)
[2018-11-05 16:06] LABS: AMMONIA < 10 umol/L (11-32)
[2018-11-05 16:15] LABS: ALANINE AMINOTRANSFERASE 28 U/L (12-78); ALBUMIN 3.9 G/DL (3.4-5.0); ALKALINE PHOSPHATASE 71 U/L (46-116); ASPARTATE AMINO TRANSFERASE 50 U/L (15-37); BILIRUBIN,TOTAL 0.7 MG/DL (0.2-1.0); CKMB 4.4 NG/ML (0.0-3.6); CREATINE KINASE 441 U/L (26-308)
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
--- NOTE | 2018-11-05 16:21 | NUR ---
ED Nurse Note: Continuation of previous note. Patient also orientated to purpose. IV access right forearm - Bloods drawn - labs sent including ammonia level. Warm blanket provided. ECG and xray CT obtained awaiting frurther orders. IV fluids in progress. Urine outstanding awaiting sample. Patient placed on monitor and vitals checked as soon as patient arrived in ED and then contibuously monitored. Addendum: 11/06/18 at 1216 by TANI ED Nurse Note: IV line inserted by SAHNNAN Escalona and labs drawn by SHANNAN Escalona.
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
[2018-11-05 16:29] VITALS: BP 149/88
--- NOTE | 2018-11-05 17:25 | NUR ---
ED Nurse Note: Second litre of IV fluid commenced. Patient requesting food. Xray has confirmed a frscture of the cheek bone thus awaiting surgical review. Patient called son and spoke with son on his cell phone. Urine sample still outstanding patient aware. No complaints of pain.
--- NOTE | 2018-11-05 18:02 | NUR ---
ED Nurse Note: Dr Aponte advised that itis k for the patient to eat. [place] and drink provided. Urine sample obtained and taken to lab - patient voided 500mls. Urine dark yellow.
[2018-11-05 18:06] LABS: APPEARANCE,URINE CLEAR; BILIRUBIN, URINE NEGATIVE (NEGATIVE); COLOR,URINE PALE YELLOW; GLUCOSE, URINE (UA) NEGATIVE (NEGATIVE); KETONES,URINE 2+ (NEGATIVE); LEUKOCYTE ESTERASE ,URINE NEGATIVE (NEGATIVE); NITRITE,URINE NEGATIVE (NEGATIVE); PH,URINE 6 (4.5-8.0); PROTEIN,URINE 1+ (NEGATIVE); UROBILINOGEN,URINE NORMAL MG/DL (0.0-1.0)
--- NOTE | 2018-11-05 18:15 | NUR ---
ED Nurse Note: Order placed for the patient. Patient has requested meat and potatoes and same ordered. Patient reports no feeling of skin sensations or tremor - assessed with arms extended no signs of tremor noted at present.
--- NOTE | 2018-11-05 19:15 | NUR ---
ED Nurse Note: Recieved report to resume care, pt in bed resting quietly, alert and oriented x 4, iv patent fluids completed, pt on monitoring, v/s stable, no cp, no sob, pt waiting for disposition information, nad noted at this time, will continue to closely monitor.
[2018-11-05] MEDS ORDERED: VITAMIN B-1100 MG ORAL (19:25)
[2018-11-05] MEDS ORDERED: FOLIC ACID1 MG ORAL (19:25)
[2018-11-05] MEDS ORDERED: TYLENOL EXTRA500 MG ORAL (19:25)
[2018-11-05 19:35] VITALS: BP 140/71
[2018-11-05 20:00] VITALS: BP 140/71
--- NOTE | 2018-11-05 20:00 | NUR ---
ER DISCHARGE NOTE: Patient is cleared to be discharged per ERMD, pt is aox4, on room air, with stable vital signs. pt was given dc and prescription instructions, pt was able to verbalize understanding, pt id band and iv site removed without complications. pt is able to ambulate with steady gait. pt took all belongings.
== END 2018-11-05 20:00 | disposition home or self-care (01) ==
LOC: EDBD 15:15 → EMR 15:36
DX: F10.129 Alcohol abuse with intoxication, unspecified (principal); Y90.8 Blood alcohol level of 240 mg/100 ml or more; S02.40FA Zygomatic fracture, left side, initial encounter for closed fracture; R00.0 Tachycardia, unspecified; Z85.21 Personal history of malignant neoplasm of larynx; F41.9 Anxiety disorder, unspecified; Y09 Assault by unspecified means
CPT/HCPCS: 36415; 70450; 70486; 80053; 80307; 81003; 82140; 82550; 82553; 84484; 85025; 87086; 93005; 96361; 96374; 99284; G0480; 80329

== ENCOUNTER 2018-11-06 16:16 | Emergency (ER) | payer BC ==
[~2018-11-06] VITALS: Ht 180.3 cm; Wt 68.0 kg
[~2018-11-06 16:16] MED LIST changes: +FOLIC ACID1 MG ORAL; +TYLENOL EXTRA500 MG ORAL; +VITAMIN B-1100 MG ORAL
[2018-11-06 16:45] VITALS: BP 135/85
[2018-11-06] MEDS ORDERED: Ketorolac 30mg Inj IV ONE (16:45)
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
[2018-11-06 17:19] LABS: BASOPHILS % (AUTO) 0.6 % (0.0-2.0); EOSINOPHILS % (AUTO) 0.5 % (0.0-3.0); HEMATOCRIT 35.9 % (42.0-52.0); LYMPHOCYTES % (AUTO) 11.6 % (20.0-45.0); MEAN CORPUSCULAR VOLUME 88 FL (80-99); MONOCYTES % (AUTO) 4.2 % (1.0-10.0); NEUTROPHILS % (AUTO) 83.2 % (45.0-75.0); PLATELET COUNT 278 K/UL (150-450); RED CELL DISTRIBUTION WIDTH 12.1 % (11.6-14.8); WHITE BLOOD COUNT 7.9 K/UL (4.8-10.8)
[2018-11-06 17:38] LABS: ANION GAP 15 mmol/L (5-15); BLOOD UREA NITROGEN 4 mg/dL (7-18); CALCIUM 8.7 MG/DL (8.5-10.1); CARBON DIOXIDE 25 MMOL/L (21-32); CHLORIDE 97 MMOL/L (98-107); CREATININE 0.8 MG/DL (0.55-1.30); POTASSIUM 3.4 MMOL/L (3.5-5.1); SODIUM 137 MMOL/L (136-145)
[2018-11-06 17:40] VITALS: BP 132/89
[2018-11-06 17:40] LABS: ALANINE AMINOTRANSFERASE 26 U/L (12-78); ALBUMIN 3.7 G/DL (3.4-5.0); ALKALINE PHOSPHATASE 73 U/L (46-116); ASPARTATE AMINO TRANSFERASE 46 U/L (15-37); BILIRUBIN,TOTAL 0.6 MG/DL (0.2-1.0)
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
--- NOTE | 2018-11-06 18:15 | NUR ---
ED Nurse Note: Patient provided urine sample. Patient bevcame frustrated when being asked to repeat the pain score - stating he doesnt know what the numbers mean. I explained again the pain score and why its used and advised that it was necessary to ask again as we had given the analgesic as explained at the time of administration - he became frustrtated and said well I dont know - a 9. He asked for food. I advised him I will ask the Dr if he can eat at present. IV fluids completed.
--- NOTE | 2018-11-06 18:30 | NUR ---
ED Nurse Note: happy for the patient to eat. Patient offerred a choice of sandwiches and juice. Patient requested a ham and cheese sandwich and a range of juices. Apple, orange and cranberry juice provided - total 480mls. Patient denies being homeless.
[2018-11-06 18:55] VITALS: BP 161/83
--- NOTE | 2018-11-06 19:00 | NUR ---
Note anant in EDM - 11/06/18 at 1924 by [email or web address] ED Nurse Note: Received pt from Ute RN. Pt is awake AAO X4, VSS, With no signs of distress. MD at bedside.
--- NOTE | 2018-11-06 19:10 | NUR ---
ED Nurse Note: Handover given to steward/stewardess night nurse Que.
--- NOTE | 2018-11-06 19:11 | NUR ---
ED Nurse Note: Received ot from Ute CAMPBELL. Pt is awake, AAO X4, VSS, with no signs of distress. at [facility]. Addendum: 11/06/18 at 1925 by [email or web address] MD at [facility]
[2018-11-06 20:19] VITALS: BP 161/83
--- NOTE | 2018-11-06 20:19 | NUR ---
ER DISCHARGE NOTE: Patient is cleared to be discharged per ERMD, pt is aox4, on room air, with stable vital signs. pt was given dc and prescription instructions, pt was able to verbalize understanding, pt id band and iv site removed without complications. pt is able to ambulate with steady gait. pt took all belongings. Pt states he is taking an Uber home.
== END 2018-11-06 20:19 | disposition home or self-care (01) ==
LOC: EMR 16:55
DX: F10.929 Alcohol use, unspecified with intoxication, unspecified (principal); Y90.8 Blood alcohol level of 240 mg/100 ml or more; S02.402D Zygomatic fracture, unspecified side, subsequent encounter for fracture with routine healing; S02.30XD Fracture of orbital floor, unspecified side, subsequent encounter for fracture with routine healing; S02.401D Maxillary fracture, unspecified side, subsequent encounter for fracture with routine healing; S02.80XD Fracture of other specified skull and facial bones, unspecified side, subsequent encounter for fracture with routine healing; Y04.8XXD Assault by other bodily force, subsequent encounter
CPT/HCPCS: 36415; 80053; 80307; 85025; 96361; 96374; 99284; G0480; J1885; 80329